=== PATIENT | female | born 2005 | race African-American/Black ===

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

== ENCOUNTER 2024-07-04 14:37 | Emergency (ER) | payer SELFPAY ==
[~2024-07-04] VITALS: Ht 167.6 cm; Wt 65.0 kg
[2024-07-04 14:52] VITALS: O2SAT 100
[2024-07-04 14:54] VITALS: BP 121/67; PULSE 74; RESP 16; TEMP 98; O2SAT 100
[2024-07-04 15:38] LABS: BASOPHILS % 0.4 % (0.0-2.0); EOSINOPHILS % 1.2 % (0.0-5.0); HEMATOCRIT. 37.5 % (36.0-48.0); HEMOGLOBIN. 12.2 g/dL (12.0-16.0); LYMPHOCYTES % 37.3 % (20.0-50.0); MEAN CORPUSCULAR HEMOGLOBIN 28.2 pg (28.0-32.0); MEAN CORPUSCULAR HGB CONC 32.6 g/dL (31.0-37.0); MEAN CORPUSCULAR VOLUME 86.4 fL (81.0-99.0); MEAN PLATELET VOLUME 8.7 fl (7.4-10.4); MONOCYTES % 7.9 % (2.0-8.0); NEUTROPHILS % 53.2 % (40.0-76.0); PLATELET 329 x1000/uL (130-400); RED BLOOD CELL COUNT 4.35 mill/uL (4.2-5.4); RED CELL DISTRIBUTION WIDTH 13.2 % (11.6-14.6); WHITE BLOOD COUNT 6.3 x1000/uL (4.5-11.0)
[2024-07-04 15:44] LABS: CHLORIDE 108 mEq/L (98-107); SODIUM 139 mEq/L (136-145)
[2024-07-04 15:45] LABS: CALCIUM 8.9 mg/dL (8.7-10.4); CARBON DIOXIDE 26 mEq/L (21-32)
[2024-07-04 15:50] LABS: CREATININE 0.7 mg/dL (0.6-1.0); GLUCOSE 94 mg/dL (70-105)
[2024-07-04 16:06] LABS: B-HCG QUANTITATIVE 8490 mIU/mL (<3); UREA NITROGEN BLOOD < 5 mg/dL (9-23)
[2024-07-04] MEDS ORDERED: PREN1.4T2 MT (16:57)
== END 2024-07-04 18:08 | disposition home or self-care (01) ==
LOC: ER 14:48
DX: O46.91 Antepartum hemorrhage, unspecified, first trimester (principal); Z3A.01 Less than 8 weeks gestation of pregnancy
CPT/HCPCS: 36415; 76801; 80048; 84702; 85025; 86850; 86900; 99284